=== PATIENT | female | born 1970 ===

== ENCOUNTER 2024-11-21 09:19 | Day surgery (SDC) | payer OTHER ==
[2024-11-21] VITALS (17 sets, daily range): BP systolic 97–145; BP diastolic 66–99
[~2024-11-21] VITALS: Ht 172 cm; Wt 82.1 kg
[~2024-11-21 09:19] MED LIST: BUPROPION HCL150 MG PO; ESTRADIOL1 MG PO
[2024-11-21] MEDS ORDERED: Lactated Ringer's 1,000 ML IV SCH (09:40)
--- NOTE | 2024-11-21 10:08 | NUR ---
History, Chart, Medications and Allergies reviewed before start of procedure.Patient confirms NPO status and agrees with scheduled surgery. Lungs clear T/O to Auscultation.Patient states colon prep results clear. Patient States Post-Procedure ride home has been arranged.
[2024-11-21] MEDS ORDERED: Midazolam HCl 1MG / ML 2ML Vial ONE (10:17)
--- NOTE | 2024-11-21 10:17 | NUR ---
11/21/24 1017 Mariel Clifton CONFIRMED AND REVIEWED H&P, MEDCICATIONS, ALLERGIES, MEDICAL HISTORY, RESPIRATORY HISTORY, VITAL SIGNS, 3-LEAD EKG, CONSENTS, AND PHYSICIAN ORDERS. PATIENT CONFIRMS NPO STATUS AND AGREES WITH SCHEDULED PROCEDURE. MONITOR INTACT WITH CONTINUOUS PULSE OXIMETRY, CAPNOGRAPHY, 3-LEAD EKG, INTERMITTENT BP. SUPPLEMENTAL O2 TO BE TITRATED THROUGHOUT PROCEDURE TO MAINTAIN O2 SATURATION ABOVE 90%. PATIENT DETERMINED TO BE ASA APPROPRIATE FOR PROPOFOL SEDATION PRIOR TO START OF PROCEDURE BY DR. WHITE.
[2024-11-21] MEDS ORDERED: propofoL 20 ML IV ONE (10:18)
--- NOTE | 2024-11-21 11:16 | NUR ---
PATIENT DENIES PAIN OR NAUSEA. SPOUSE AT SIDE THROUGHOUT RECOVERY. Discharge instructions reviewed with patient. Patient verbalizes understanding. Copy given to patient to take home. Discharged via wheelchair to private car for ride home.
== END 2024-11-21 23:00 | disposition home or self-care (01) ==
LOC: ORSCMMR 09:19 → ORD 10:00 → ORSCMMR 13:23
PROVIDERS: Internal Medicine Gastroenterology
PROC: 0DJD8ZZ Inspection of Lower Intestinal Tract, Via Natural or Artificial Opening Endoscopic (ICD-10-PCS; principal; 2024-11-21 10:00)
DX: Z12.11 Encounter for screening for malignant neoplasm of colon (principal); F32.A Depression, unspecified; K57.30 Diverticulosis of large intestine without perforation or abscess without bleeding; Z79.899 Other long term (current) drug therapy
CPT/HCPCS: J2250; J2704; J7120

== ENCOUNTER 2025-03-02 00:28 | Emergency (ER) | payer OTHER ==
[~2025-03-02] VITALS: Ht 172.7 cm; Wt 90.7 kg
[2025-03-02] MEDS ORDERED: NS 1,000 ML IV SCH (01:10)
[2025-03-02] MEDS ORDERED: Ketorolac Tromethamine 30mg Vial IV ONE (01:10)
[2025-03-02] MEDS ORDERED: Ondansetron HCl 2 MG / ML 2ML Vial IV ONE (01:10)
[2025-03-02 01:28] LABS: BASOPHILS ABSOLUTE AUTO 0.06 K/mm3 (0.00-0.23); BASOPHILS PERCENT AUTO 1 % (0-2); EOSINOPHILS ABSOLUTE AUTO 0.01 K/mm3 (0.00-0.68); EOSINOPHILS PERCENT AUTO 0 % (0-6); Hematocrit 41.7 % (33.0-51.0); Hemoglobin 14.2 g/dL (11.5-16.0); IMMATURE GRAN ABSOLUTE AUTO 0.03 K/mm3 (0.00-0.10); IMMATURE GRAN PERCENT AUTO 0 % (0-1); LYMPHOCYTES ABSOLUTE AUTO 1.19 K/mm3 (0.84-5.20); LYMPHOCYTES PERCENT AUTO 11 % (21-46); MONOCYTES ABSOLUTE AUTO 0.23 K/mm3 (0.16-1.47); MONOCYTES PERCENT AUTO 2 % (4-13); Mean Corpuscular HGB Conc 34.1 g/dL (31.5-36.5); Mean Corpuscular Volume 91 fL (80-100); NEUTROPHILS ABSOLUTE AUTO 9.57 K/mm3 (1.96-9.15); NEUTROPHILS PERCENT AUTO 86 % (41-73); NRBC ABSOLUTE 0.00 K/mm3 (0.00-0.02); NRBC Auto 0.0 /100 WBC (0.0-0.2); Platelet Count 300 K/mm3 (150-400); RDW Coefficient Variation 11.9 % (11.7-14.2); RDW Standard Deviation 39.8 fL (35.1-46.3)
[2025-03-02 01:47] LABS: Alanine Aminotransfer (ALT/SGP 23.0 U/L (12-78); Albumin, Blood 3.9 g/dL (3.4-5.0); Albumin/Globulin Ratio 1.0 (0.8-1.8); Anion Gap 10.0 mmol/L (3-11); Aspartate Aminotrans (AST/SGOT 17.0 U/L (12-37); Bilirubin, Total 0.3 mg/dL (0.1-1.0); Blood Urea Nitrogen 14.0 mg/dL (8-24); CO2, Blood 25.0 mmol/L (21-32); Calcium, Blood 9.0 mg/dL (8.5-10.1); Chloride, Blood 106.0 mmol/L (98-108); Creatinine, Blood 0.59 mg/dL (0.40-1.00); Globulin, Blood 4.1 g/dL (2.2-4.0); Glucose, Blood 146.0 mg/dL (70-99); Potassium, Blood 3.6 mmol/L (3.5-5.5); Sodium, Blood 137.0 mmol/L (136-145); Total Protein, Blood 8.0 g/dL (6.4-8.2)
[2025-03-02] MEDS ORDERED: Morphine Sulfate 4 MG/1 ML Injection IV ONE ×2 (03:05→05:20)
[2025-03-02] MEDS ORDERED: Metoclopramide HCl 5MG / ML 2ML Vial IV ONE (03:20)
[2025-03-02 05:19] LABS: Source, Urine Clean Catch
[2025-03-02 05:25] LABS: Bilirubin, Urine Neg (Neg); Glucose Qualitative, Urine Neg (Neg); Ketones, Urine 4+ (Neg); Leukocyte Esterase, Urine Neg (Neg); Protein, Urine Neg (Neg); Specific Gravity, Urine 1.010 (1.003-1.022); Urobilinogen, Urine NORM (Normal)
[2025-03-02 05:30] LABS: Color, Urine Pale Yellow (P-Yellow)
[2025-03-02 05:31] LABS: Red Blood Cells, Urine 0-2 /hpf (0-2); White Blood Cells, Urine 0-2 /hpf (0-5)
[2025-03-02 05:45] VITALS: BP 161/89
[2025-03-02] MEDS ORDERED: GABA300 PO (06:10)
[2025-03-02] MEDS ORDERED: ONDA4ODT MM (06:10)
[2025-03-02] MEDS ORDERED: AZIT500 PO (06:10)
== END 2025-03-02 06:15 | disposition home or self-care (01) ==
LOC: ER 00:28
PROVIDERS: Student in an Organized Health Care Education/Training Program
DX: J18.9 Pneumonia, unspecified organism (principal); M54.31 Sciatica, right side; Z79.899 Other long term (current) drug therapy
CPT/HCPCS: 74177; 80053; 81001; 81025; 83690; 85025; A9270; J1885; J2270; J2405; J2765; J7030; Q9967

== ENCOUNTER → 2025-03-17 | Outpatient (CLI) | payer OTHER ==
[~2025-03-17] MED LIST changes: +AZIT500 PO; +GABA300 PO; +ONDA4ODT MM
== END ==
LOC: LAB 14:40 → LAB SHORT 14:40
DX: R35.0 Frequency of micturition (principal)
CPT/HCPCS: 87086